=== PATIENT | female | born 1970 | race Caucasian/White ===

== ENCOUNTER 2025-07-08 11:09 | Inpatient (IN) | payer OTHER ==
[~2025-07-08] VITALS: Ht 162.6 cm; Wt 90.7 kg
[2025-07-08 11:56] LABS: BASOPHILS ABSOLUTE AUTO 0.03 K/mm3 (0.00-0.23); BASOPHILS PERCENT AUTO 0 % (0-2); EOSINOPHILS ABSOLUTE AUTO 0.06 K/mm3 (0.00-0.68); EOSINOPHILS PERCENT AUTO 1 % (0-6); Hematocrit 43.8 % (33.0-51.0); Hemoglobin 14.8 g/dL (11.5-16.0); IMMATURE GRAN ABSOLUTE AUTO 0.03 K/mm3 (0.00-0.10); IMMATURE GRAN PERCENT AUTO 0 % (0-1); LYMPHOCYTES ABSOLUTE AUTO 0.90 K/mm3 (0.84-5.20); LYMPHOCYTES PERCENT AUTO 11 % (21-46); MONOCYTES ABSOLUTE AUTO 0.56 K/mm3 (0.16-1.47); MONOCYTES PERCENT AUTO 7 % (4-13); Mean Corpuscular HGB Conc 33.8 g/dL (31.5-36.5); Mean Corpuscular Volume 87 fL (80-100); NEUTROPHILS ABSOLUTE AUTO 6.34 K/mm3 (1.96-9.15); NEUTROPHILS PERCENT AUTO 80 % (41-73); NRBC ABSOLUTE 0.00 K/mm3 (0.00-0.02); NRBC Auto 0.0 /100 WBC (0.0-0.2); Platelet Count 256 K/mm3 (150-400); RDW Coefficient Variation 12.6 % (11.7-14.2); RDW Standard Deviation 39.8 fL (35.1-46.3)
[2025-07-08 12:15] LABS: Prothrombin Time Results 10.9 Sec (9.7-11.5)
[2025-07-08 12:28] LABS: Alanine Aminotransfer (ALT/SGP 25.0 U/L (12-78); Albumin, Blood 4.2 g/dL (3.4-5.0); Albumin/Globulin Ratio 1.0 (0.8-1.8); Anion Gap 10.0 mmol/L (3-11); Aspartate Aminotrans (AST/SGOT 17.0 U/L (12-37); Bilirubin, Total 0.5 mg/dL (0.1-1.0); Blood Urea Nitrogen 13.0 mg/dL (8-24); CO2, Blood 24.0 mmol/L (21-32); Calcium, Blood 9.1 mg/dL (8.5-10.1); Chloride, Blood 104.0 mmol/L (98-108); Creatinine, Blood 0.85 mg/dL (0.40-1.00); Globulin, Blood 4.3 g/dL (2.2-4.0); Glucose, Blood 125.0 mg/dL (70-99); Potassium, Blood 3.4 mmol/L (3.5-5.5); Sodium, Blood 135.0 mmol/L (136-145); Total Protein, Blood 8.5 g/dL (6.4-8.2)
[2025-07-08] MEDS ORDERED: DILTIAZEM 24HR180 M3 PO (15:13)
[2025-07-08] MEDS ORDERED: LOSARTAN POTASS25 M2 PO (15:13)
[2025-07-08] MEDS ORDERED: Ondansetron HCl 2 MG / ML 2ML Vial IV PRN (16:25)
[2025-07-08] MEDS ORDERED: HydrALAZINE HCl 20 MG / ML 1ML Vial IV PRN (16:35)
[2025-07-08 19:24] VITALS: BP 193/117
[2025-07-08 23:35] VITALS: BP 191/159
[2025-07-08 23:52] VITALS: BP 186/107
[2025-07-09] VITALS (10 sets, daily range): BP systolic 154–205; BP diastolic 96–115
--- NOTE | 2025-07-09 06:11 | NUR ---
Shift Summary Pt admitted to this unit for CVA, L side affected. Currently her only defecit is a feeling of numbness and tingling on her L side. She is hypertensive with BP around 190/110. Hospitalist asked me to DC PRN hydralazine and put in a notify order to call if systolic>220. Pt states the symptoms began 07/07/25 at 1000. MRI came back positive for infarct. Pt is AOx4, independent in the room. Equal strength on both sides, eyes PERRLA. SCDs are on.
[2025-07-09 06:42] LABS: CHOL/HDL RATIO 4.6; Cholesterol 207 mg/dL (50-200); HDL Cholesterol 45 mg/dL (>39); LDL/HDL RATIO 3.2; Low Density Lipoprotein Chol 142 mg/dL (0-110); Triglycerides 98 mg/dL (30-160); Very Low Density Lipoprot Chol 19 mg/dL (6-32)
[2025-07-09] MEDS ORDERED: Enoxaparin 40 MG/0.4 ML SYR SC SCH (09:00)
--- NOTE | 2025-07-09 10:35 | NUR ---
RN NOTE MS MCKINNON IS OX4, VERY SUBTLE FINGER TO NOSE COORDINATION DECREASE ON LEFT SIDE COMPARED TO RIGHT. MILD NUMBNESS STILL THERE TO LEFT CHEEK AND LEFT NOSE, LEFT FORFINGER AND LEFT THUMB. SHE STILL HAS VISUAL CHANGES TO LEFT EYE DESCRIBED SEEING SOME COLORS AND SOME DARK SPOTS. MOVING INDEPENDENTLY. EQUAL STRENGTH L/R ARMS, HANDS, LEGS. ECHO DONE. MS MCKINNON AND HER DAUGHTER ARE VERY INTERSTED AND OPEN TO EDUCATION FOR STROKE PREVENTION AND INTERVENTIONS TO IMPROVE LIFESTYLE.
--- NOTE | 2025-07-09 18:21 | NUR ---
SHIFT SUMMARY THROUGHOUT THE SHIFT THE NUMBNESS ON THE LEFT SIDE OF MS MARSHALL'S FACE HAS SUBSIDED. THE NUMBNESS ON HER FINGERTIPS HAS LESSENED. THE VISION IN HER LEFT EYE IS STILL WITH STRANGE COLORS AND BLACK SPOTS, BUT SHE THINKS IT IS LESS. HER BLOOD PRESSURE HAS BEEN HIGH TODAY, DR FRAGOSO AWARE, ORAL ANTIHYPERTENSIVES GIVEN. REQUEST FOR [employer] CONTACTED FOR THE REQUEST AND DR FRAGOSO AND PRATIBHA AWARE THAT IT MIGHT NOT BE AVAILABLE BEFORE POTENTIAL DISCHARGE 07/10/25. FAMILY AT BEDSIDE. PATIENT UPDATED ON PLAN OF CARE AND IN AGREEMENT.
[2025-07-10] VITALS (9 sets, daily range): BP systolic 140–206; BP diastolic 94–128
--- NOTE | 2025-07-10 04:05 | NUR ---
PATIENT A/OX4, UP INDEPENDENTLY IN ROOM. B/P REMAINS ELEVATED THIS SHIFT. [place] TO INCREASE THIS AM. SR ON TELE, DENIES ANY CP OR PRESSURE. NUMBNESS TO L SIDE CONTINUES TO IMPROVE. PATIENT CONTINUES TO REPORT "BLACK SPOTS" IN L EYE VISION. PATIENT SLEPT WELL THROUGH THE NIGHT AND DENIES ANY PAIN OR DISCOMFORT.
[2025-07-10] MEDS ORDERED: HydrALAZINE HCl 20 MG / ML 1ML Vial IV PRN (09:35)
--- NOTE | 2025-07-10 10:17 | NUR ---
PATIENT HAS BEEN HYPERTENSIVE THIS MORNING, DR. FRAGOSO NOTIFIED. ORDERS FOR PRN HTN MEDICATION GIVEN AND DR. FRAGOSO ASKED THAT A BLOOD PRESSURE BE REPEATED IN AN HOUR AND TO NOTIFY HIM OF RESULT. PATIENT IS ANXIOUS ABOUT ALL OF THE NEW MEDICATIONS AND HER HTN. THE PATIENT'S DAUGHTER IS AT THE BEDSIDE. WILL CONTINUE TO MONITOR
[2025-07-10] MEDS ORDERED: HydrALAZINE HCl 20 MG / ML 1ML Vial IV SCH (12:00)
[2025-07-10] MEDS ORDERED: AMLO10 PO (16:07)
[2025-07-10] MEDS ORDERED: LOSA50 PO (16:07)
[2025-07-10] MEDS ORDERED: ASPI81CH PO (16:08)
[2025-07-10] MEDS ORDERED: CATAPRES0.1 MG PO (16:09)
[2025-07-10] MEDS ORDERED: ATOR80 PO (16:09)
[2025-07-10] MEDS ORDERED: CLOP75 PO (16:10)
[2025-07-10] MEDS ORDERED: HYDHCL25 PO (16:17)
== END 2025-07-10 16:40 | disposition home or self-care (01) | DRG 66 ==
LOC: ER 11:09 → MEDS 11:10 → ENPENDDIS 07-10 15:40 → MEDS 07-10 16:40
PROVIDERS: Emergency Medicine; Physician Assistant; ADMIT Internal Medicine
DX: I63.9 Cerebral infarction, unspecified (principal); I10 Essential (primary) hypertension; E87.6 Hypokalemia; E78.5 Hyperlipidemia, unspecified; R20.0 Anesthesia of skin; H53.8 Other visual disturbances; Z87.891 Personal history of nicotine dependence; Z79.899 Other long term (current) drug therapy
CPT/HCPCS: 36415; 70450; 70496; 70498; 70551; 80053; 80061; 85025; 85610; 85730; 93005; 93010; 93306; 97161; 99285-25; A9270; G0378; J0360; Q9967